=== PATIENT | male | born 1970 | race Caucasian/White ===

== ENCOUNTER 2018-03-05 14:38 | Emergency (ER) | payer MEDICAID, OTHER ==
[~2018-03-05] VITALS: Ht 172.7 cm; Wt 72.7 kg
[~2018-03-05 14:38] MED LIST: CLIN300C85 PO; CYCL-1 PO; NAPR-56 PO
[2018-03-05 14:41] VITALS: BP 129/91
[2018-03-05] MEDS ORDERED: AMOX-422 PO (15:50)
[2018-03-05] MEDS ORDERED: HYDROcodone/acetaminophen 5mg/325mg tablet PO ONE (15:50)
== END 2018-03-05 16:05 | disposition home or self-care (01) ==
LOC: ER 14:38
DX: K04.7 Periapical abscess without sinus (principal); K02.9 Dental caries, unspecified; I10 Essential (primary) hypertension; G89.29 Other chronic pain; Z98.890 Other specified postprocedural states; Z88.5 Allergy status to narcotic agent; Z79.2 Long term (current) use of antibiotics; Z79.899 Other long term (current) drug therapy
CPT/HCPCS: 99283